=== PATIENT | male | born 1960 | race Caucasian/White ===

== ENCOUNTER 2020-06-05 20:16 | Inpatient (IN) | payer OTHER, SELFPAY ==
[2020-06-05 20:18] VITALS: BP 170/84; PULSE 103; RESP 35; TEMP 37.8; O2SAT 84; BMI 28.5
--- NOTE | 2020-06-05 20:20 | EKG12_ITS ---
Test Reason : DYSRYTHMIA Blood Pressure : / mmHG Vent. Rate : 102 BPM Atrial Rate : 102 BPM P-R Int : 150 ms QRS Dur : 098 ms QT Int : 364 ms P-R-T Axes : 022 002 011 degrees QTc Int : 474 ms Sinus tachycardia Otherwise normal ECG Confirmed by MAR BOWMAN, WALDO ([id number]), state editor RICHIE GAMEZ ([id number]) on 06/08/2020 10:25:33 AM Referred By: RAFA Confirmed By:WALDO MANUEL MD
--- NOTE | 2020-06-05 20:23 | ED.VISSUMM ---
- ER Visit Summary Date of Service: 06/05/20 Chief Complaint: Shortness of breath History of Present Illness: The patient is a 59 M presenting with shortness of breath, cough, fever. His symptoms started 11 days ago with cough. He states since yesterday he has been increasingly short of breath. This is worsened with exertion. Has had temperature up to 101 at home. He had a Covid test yesterday in outpatient facility. The results are not back yet. He states children around him have had cough and cold symptoms. He lost his sense of taste and smell one week ago. He denies diarrhea. Denies other complaints. Physical Examination: Vitals are stable. Temperature 100.1. Pulse ox 84% on room air. 97% on 4L. Alert no acute distress. HEENT exam is unremarkable. Neck is supple. No meningismus Lungs are rales at bases bilaterally. Heart is regular and tachycardic Abdomen is soft nontender nondistended. Extremities are unremarkable. Skin is warm and dry. No rash No focal neurologic deficit. Remainder of exam is unremarkable. Emergency Department Course and Treatment: Patient given IV fluids, Tylenol. EKG is sinus tachycardia rate of 102 with no acute ischemic changes. CBC shows white count 13.6, hemoglobin 10.4. Chest xray shows bilateral pulmonary infiltrates consistent with a pneumonic process of viral, atypical or typical nature. CBC shows white count 13.6, hemoglobin 10.4. Sodium 134, potassium 3.4, glucose 140. Troponin is negative. Lactic acid 2.1. Blood cultures were sent. Covid is positive. His pulse ox is 97% on 4 L. Discussed with the hospitalist. He will be given Rocephin, Zithromax, Decadron. He will be admitted. Disposition: Admission Impression: Bilateral pneumonia secondary to Covid, hypoxia This note was generated with [employer] dictation software. It may contain incorrect words, spelling, and punctuation that were not noted in review of the chart prior to signing ED Disposition - Plan for ED Patient: Referrals: Ananda Olvera DO [Primary Care Provider] -
[2020-06-05] MEDS: Acetaminophen 500 MG Tablet 1000 MG PO (20:33)
--- NOTE | 2020-06-05 20:45 | RAD_ITS ---
STUDY: X-RAY CHEST REASON FOR EXAM: Male, 59 years old. Cough, shortness of breath, fever for 2 days. TECHNIQUE: 1 view COMPARISON: None. FINDINGS: Bilateral lower lung zone infiltrates and infiltrate in the right midlung zone. There is no demonstrated pleural abnormality. Normal size heart. Normal mediastinum and yessi. Normal visualized pulmonary arteries. There is atherosclerotic calcification of the aortic arch with tortuosity. There are diffuse degenerative changes of the visualized thoracic spine. Normal visualized ribs, clavicles, and shoulders. There is no demonstrated abnormality of the visualized soft tissue structures of the upper abdomen. RAD/Chest 1 View (Portable) IMPRESSION: Bilateral pulmonary infiltrates consistent with a pneumonic process of viral, atypical or typical nature. Electronically Signed: Martina Solares MD at 21:10 EDT , Service support ,
[2020-06-05 20:58] LABS: Absolute Lymphocyte Count 0.61 X10^3/uL (0.83-4.51); Basophil# 0.01 X10^3/uL; Basophil% 0.1 % (0-1); Hematocrit 31.5 % (40-54); Hemoglobin 10.4 g/dL (13.0-16.5); Lymphocyte # 0.61 X10^3/ul (4.0); Lymphocyte % 4.5 % (19-41); Mean Corpuscular Hgb 29.9 pg (27.0-32.0); Mean Corpuscular Volume 90.5 fL (80-94); Monocyte# 0.96 X10^3/uL; NRBC Flagged by Analyzer 0 % (0-5); Neutrophil # 11.97 X10^3/uL (2.7-7.7); Neutrophil % 87.9 % (47-70); Platelet Count 316 K/mm3 (150-450); RBC Distribution Width SD 42.7 fl (35.1-43.9); Red Blood Count 3.48 M/mm3 (4.6-6.2); White Blood Count 13.6 K/mm3 (4.4-11.0)
[2020-06-05 21:17] VITALS: BP 162/90; PULSE 10; RESP 27; O2SAT 96
[2020-06-05 21:17] LABS: Anion Gap 9 (5-15); BUN 8 mg/dL (7-18); BUN/Creat Ratio 10.2 RATIO (10-20); Calcium,Total 8.6 mg/dL (8.5-10.1); Chloride 100 mmol/L (98-107); Creatinine, Serum 0.78 mg/dL (0.70-1.30); EST Glomerular Filtration Rate 108 mL/min (>60); Est Glom Filt Rate - Afr Amer 131 mL/min (>60); Estimated Creatinine Clearance 104.49 ml/min; Glucose 140 mg/dL (74-106); Potassium 3.4 mmol/L (3.5-5.1); Sodium Level 134 mmol/L (136-145)
[2020-06-05 21:19] VITALS: O2SAT 84
[2020-06-05 21:40] LABS: Lactic Acid 2.1 mmol/L (0.4-1.9)
[2020-06-05 22:00] VITALS: BP 139/87; PULSE 88; RESP 31; TEMP 37.3; O2SAT 97
[2020-06-05 23:00] VITALS: BP 136/84; PULSE 87; RESP 36; O2SAT 97
[2020-06-05 23:01] LABS: Probe Check PASS; Specimen Processing Control PASS
--- NOTE | 2020-06-05 23:21 | PCM.HP.STD ---
Problem List (1) SARS (severe acute respiratory syndrome) Status: Acute (2) COVID-19 Status: Acute History of Present Illness Date of Admission: 06/04/20 Chief Complaint: Shortness of breath The patient is a 59 year old [place] male previously healthy who presents emergency department with shortness of breath that started 2 days ago. His shortness of breath is with mild exertion. Patient had a Covid test a day before presentation. His results was not back prior to presentation. Patient reported that about 11 days ago his symptoms started with a cold. Associated with symptoms is a fever with highest temperature of 101 Fahrenheit. Further he has lost his sense of taste or smell. Paramedics brought patient to emergency department. His oxygen saturation on room air at home was 84%. At emergency department he required supplemental oxygen of 4.5 L which brought his oxygen saturation to about 96 to 97%. Reported several children that has come in contact with are coughing. Past Medical History Medical History: Medical History (Last Updated 06/06/20 @ 00:[address] Ben Ortez MD) Denies previous medical history Allergies No Known Allergies Allergy (Verified 06/05/20 20:22) Home Medications: Ambulatory Orders Medication Instructions Recorded NK 06/05/20 Surgical History: no surgical history, - Smoking Status: Never smoker - *Family History Maternal History Items: Cancer - Breast Paternal History Items: Cancer - Prostate, Heart Disease Review of Systems Constitutional: Reports: Chills, Fever, Malaise. Denies: Weight Change HEENT: Reports: Head Aches. Denies: Sinus Congestion, Sinus Drainage Cardiovascular: Denies: Chest Pain, Palpitations Respiratory: Reports: Cough, Sputum production - Occasional greenish sputum.. Denies: Shortness of breath at rest Gastrointestinal: Denies: Abdominal Pain, Nausea, Vomiting Genitourinary: Denies: Dysuria Musculoskeletal: Denies: Joint Pain, Joint Tenderness Skin: Denies: Rash, Wounds Neurological: Denies: Numbness, Tingling, Focal weakness Psychiatric: Denies: Anxiety, Depression, Homicidal Ideations, Suicidal Ideations Hematologic/ Lymphatic: Denies: Easy Bruising, Easy Bleeding VTE Information - Inpt Only VTE Present on Admission: No VTE Mechan Device Prophylaxis: None VTE Pharm Prophylaxis ordered?: Yes Patient Problems: Active and Suspected Problems (Last Updated 06/06/20 @ 00:[address] Ben Ortez MD) SARS (severe acute respiratory syndrome) (Acute) COVID-19 (Acute) - Physical Exam Vitals/I&O's: Vital Signs Temp Pulse Resp BP Pulse Ox 99.1 F 88 31 H 139/87 H 97 06/05/20 22:00 06/05/20 22:00 06/05/20 22:00 06/05/20 22:00 06/05/20 22:00 Oxygen Flow Rate (L/min) 4 Oxygen Delivery Method Nasal Cannula Weight: 87.5 kg Body Mass Index (BMI) 28.5 General: Alert, Oriented x3, Cooperative HEENT: Atraumatic, PERRLA, EOMI, Normocephalic Neck: Supple, No JVD, Negative Carotid Bruits Lungs: Rales, Tachypneic Cardiovascular: Regular rate, Regular Rhythm, Normal S1, Normal S2, No murmurs, Tachycardic Abdomen: Bowel Sounds Present, Soft, Non Tender Extremities: No edema, Capillary Refill Less than 3 Seconds Skin: No rashes, No breakdown Musculoskeletal: No Tenderness to Palpation of Joints or Extremities Neurological: Cranial nerves II-XII grossly intact Psych/Mental Status: Normal Affect, Appropriate Laboratory Results 06/05/20 20:25: WBC 13.6 H, RBC 3.48 L, Hgb 10.4 L, Hct 31.5 L, MCV 90.5, MCH 29.9, MCHC 33.0, RDW Std Deviation 42.7, RDW Coeff of Freddy 13.0, Plt Count 316, MPV 10.0, Immature Gran % (Auto) 0.500, Neut % (Auto) 87.9 H, Lymph % (Auto) 4.5 L, [place] % (Auto) 7.0, Eos % (Auto) 0.0, Baso % (Auto) 0.1, Absolute Neuts (auto) 12.0 H, Absolute Lymphs (auto) 0.61 L, Nucleated RBC % 0 06/05/20 20:25: Sodium 134 L, Potassium 3.4 L, Chloride 100, Carbon Dioxide 25.0, Anion Gap 9, BUN 8, Creatinine 0.78, Estim Creat Clear Calc 104.49, Est GFR (MDRD) Af Amer 131, Est GFR (MDRD) Non-Af 108, BUN/Creatinine Ratio 10.2, Glucose 140 H, Calcium 8.6, Troponin I < 0.015 06/05/20 20:25: Lactic Acid 2.1 H* 06/05/20 20:40: COVID-19 (TEJAL) Detected Current Medications Azithromycin 500 mg/ Dextrose 255 mls @ 250 mls/hr IV X1 ONE Stop: 06/06/20 00:14 Ceftriaxone Sodium (Rocephin) 1 gm in 50 mls @ 100 mls/hr IV X1 ONE Stop: 06/05/20 23:42 Assessment/Plan All Active Problems (Last Updated 06/06/20 @ 00:[address] Ben Ortez MD) SARS (severe acute respiratory syndrome) (Acute) COVID-19 (Acute) The patient is a 59 year old [place] male previously healthy who presents to the emergency department with shortness of breath; loss of taste and smell; fever; and chills who was found to have a positive COVID-19 test SARS COVID-19 infection. Review of emergency department labs showed a positive COVID-19 infection. Patient with neutrophilic leukocytosis and low lymphocytes. Discussed emergent department doctor to give IV Decadron; ceftriaxone and azithromycin. IV Decadron, ceftriaxone and azithromycin continued. We will get a procalcitonin. If procalcitonin is unremarkable consider discontinuation of antibiotics. Strep pneumonia and Legionella urine antigen ordered. Sputum Gram stain and culture ordered. Blood cultures x2 was obtained emergency department; follow. Lactic acid elevated at 2.1; trend[facility]. Oxygen supplementation as necessary. Tylenol as needed for fever. Trend CBC and BMP. Schedule Mucinex ordered. Check D-dimer. Enhanced droplet precautions ordered. Hypokalemia P.o. potassium supplementation ordered. Trend. DVT prophylaxis Subcutaneous Lovenox Covid protocol. Inpatient E&M: 91222 Init Hosp L3
[2020-06-06 00:01] VITALS: BP 142/79; PULSE 84; RESP 32; TEMP 37.2; O2SAT 97
[2020-06-06] MEDS: dexAMETHasone 4 MG/ML Vial 6 MG IV (00:05)
[2020-06-06] MEDS: Ceftriaxone 1 GM/50 ML BAG IV ×2 (00:07→23:41)
[2020-06-06 00:38] VITALS: BMI 26.8
[2020-06-06 00:44] VITALS: BP 139/72; PULSE 77; RESP 20; TEMP 37.6; O2SAT 98
[2020-06-06 00:51] LABS: Reflex Lactate? Y
[2020-06-06] MEDS: guaiFENesin 1,200 MG Tablet 1200 MG PO ×3 (01:32→21:15)
[2020-06-06 01:58] LABS: Lactic Acid 1.1 mmol/L (0.4-1.9)
[2020-06-06 02:06] LABS: Fibrinogen 857 mg/dl (203-444)
[2020-06-06 02:24] LABS: D-Dimer Quantitative (DVT/PE) 0.92 FEU/ug/m (0.27-0.49)
[2020-06-06 04:05] VITALS: BP 131/78; PULSE 76; RESP 20; TEMP 36.7; O2SAT 96
--- NOTE | 2020-06-06 04:51 | CT_ITS ---
STUDY: CTA CHEST REASON FOR EXAM: Male, 59 years old. SOB/FEVER/LOSS OF TASTE AND SMELL RADIATION DOSAGE (If Supplied By Facility): CTDIvol = ( 13.83 ) mGy, DLP = ( 555.16 ) mGycm TECHNIQUE: The examination was performed with the intravenous administration of IV 100mL Isovue-370. Post-processing of the angiographic images was performed, with multiplanar reformation, but without 3D reconstruction. Individualized dose optimization techniques were used for this CT. COMPARISON: Chest x-ray 06/05/2020. FINDINGS: Normal enhancement of the main pulmonary artery and right and left pulmonary arteries. Normal enhancement of the bilateral peripheral pulmonary arteries. There is no demonstrated pulmonary embolism. There is mild atherosclerotic calcification of the thoracic aorta. Otherwise normal thoracic aorta and visualized great vessels. There is no demonstrated aortic dissection. Normal heart and pericardium. There were multiple mildly enlarged mediastinal lymph nodes, with short axis diameters ranging up to 1.5 cm in the pretracheal and right paratracheal region, and 1.8 cm in the subcarinal region.. The visualized hilar lymph nodes are normal in size and morphology. Normal visualized trachea and bronchi. The lungs are well expanded. There are groundglass opacities which are predominately seen in the peripheries of the mid and upper lung gant. There are denser infiltrates as well as areas of groundglass opacity in the lower lung gant bilaterally. Normal pleura. Normal chest wall structures. There are bridging osteophytes at multiple contiguous levels of the thoracic spine, consistent with DISH (diffuse idiopathic skeletal hyperostosis). The gallbladder is contracted, which may be normal or abnormal, depending on when the patient last ate a fatty meal. There is a small hiatal hernia. CT/CTA Chest W/WO Contrast IMPRESSION: Normal CTA chest examination, without a demonstrated pulmonary embolism, aortic aneurysm, or aortic dissection. Commonly reported imaging features of (COVID-19) pneumonia are present. Other processes such as influenza pneumonia and organizing pneumonia (as can be seen with drug toxicity and connective tissue disease), can cause a similar imaging pattern. Mild atherosclerosis. Mild mediastinal lymphadenopathy. Electronically Signed: Ryan Horn MD at 7:10 EDT , Service support ,
[2020-06-06 05:54] LABS: Procalcitonin 0.14 ng/mL (0.00-0.09)
--- NOTE | 2020-06-06 05:57 | PCM.CONS.PUL ---
Reason for Consult Date of Consultation: 06/06/20 Reason for Consultation: Covid pneumonia History of Present Illness: The patient is a 59-year-old male, with a history as outlined below, who presented to the emergency department on June 05 with complaints of shortness of breath, cough and fever. The patient's symptoms initially began over 1 week ago. The patient did report a loss in both taste and smell as well. He denied any known sick contact exposure. On presentation to the emergency department, the patient was noted to be febrile, mildly tachycardic and tachypneic. Laboratory evaluation revealed an elevated white blood cell count to 13,000. D-dimer was only elevated to 0.92. Chemistry profile was notable for a potassium of 3.4 and lactate of 2.1. Troponin was negative. Procalcitonin was not significantly elevated. Coronavirus PCR was positive. Plain film chest x-ray revealed bilateral pulmonary infiltrates. The patient has been managed to date with empiric antimicrobials, DVT prophylaxis dosing Lovenox and Decadron. Past Medical History Medical History: Medical History (Last Updated 06/06/20 @ 00:[address] Ben Ortez MD) Denies previous medical history Allergies No Known Allergies Allergy (Verified 06/05/20 20:22) Home Medications: Ambulatory Orders Medication Instructions Recorded NK 06/05/20 Surgical History: no surgical history, - Smoking Status: Former smoker Tobacco Use: Non-smoker - *Family History Maternal History Items: Cancer - Breast Paternal History Items: Cancer - Prostate, Heart Disease Review of Systems Constitutional: Reports: Chills, Fever, Fatigue Eyes: Reports: Double vision. Denies: Blurred vision HEENT: Denies: Head Aches, Sinus Congestion, Sinus Drainage Cardiovascular: Denies: Chest Pain, Palpitations Respiratory: Reports: Cough, Shortness of Breath Gastrointestinal: Denies: Abdominal Pain, Nausea, Vomiting Genitourinary: Denies: Dysuria Musculoskeletal: Denies: Joint Pain, Joint Tenderness Skin: Denies: Rash, Wounds Neurological: Denies: Numbness, Tingling, Focal weakness Hematologic/ Lymphatic: Denies: Easy Bruising, Easy Bleeding Patient Problems: Active and Suspected Problems (Last Updated 06/06/20 @ 00:[address] Ben Ortez MD) SARS (severe acute respiratory syndrome) (Acute) COVID-19 (Acute) Objective: The patient's most recent lab work, culture data and imaging studies have all been personally reviewed. Coronavirus PCR was positive on June 05. - Physical Exam Vitals/I&O's: Vital Signs Temp Pulse Resp BP Pulse Ox 98.1 F 76 20 H 131/78 H 96 06/06/20 04:05 06/06/20 04:05 06/06/20 04:05 06/06/20 04:05 06/06/20 04:05 Oxygen Flow Rate (L/min) 4 Oxygen Delivery Method Room Air Weight: 192 lb 7.417 oz Body Mass Index (BMI) 26.8 Intake and Output for Last 24 Hours 06/04/20 06/05/20 06/06/20 23:59 23:59 23:59 Intake Total 305 / 305 Balance 305 / 305 General: Alert, Oriented x3, Cooperative, No apparent distress HEENT: Atraumatic, PERRLA, Normocephalic Oral: No Gingival or Mucosal Lesions/ Ulcerations Neck: Supple, No Nodes, Trachea Midline Lungs: No rhonchi, No wheeze, No rales, Diminished Cardiovascular: Regular rate, Regular Rhythm Abdomen: Bowel Sounds Present, Soft, Non Tender Extremities: No clubbing, No cyanosis, No edema Skin: No breakdown Musculoskeletal: No Tenderness to Palpation of Joints or Extremities Lymphatic: No Cervical, Supraclavicular, or Inguinal Adenopathy Neurological: Cranial nerves II-XII grossly intact, Neuro grossly intact Psych/Mental Status: Normal Affect, Appropriate Labs (Last 48 Hours) 06/05/20 06/05/20 06/05/20 20:25 20:25 20:25 WBC 13.6 H RBC 3.48 L Hgb 10.4 L Hct 31.5 L MCV 90.5 MCH 29.9 MCHC 33.0 RDW Std Deviation 42.7 RDW Coeff of Freddy 13.0 Plt Count 316 MPV 10.0 Immature Gran % (Auto) 0.500 Neut % (Auto) 87.9 H Lymph % (Auto) 4.5 L [place] % (Auto) 7.0 Eos % (Auto) 0.0 Baso % (Auto) 0.1 Absolute Neuts (auto) 12.0 H Absolute Lymphs (auto) 0.61 L Nucleated RBC % 0 Fibrinogen D-Dimer Quant (PE/DVT) Sodium 134 L Potassium 3.4 L Chloride 100 Carbon Dioxide 25.0 Anion Gap 9 BUN 8 Creatinine 0.78 Estim Creat Clear Calc 104.49 Est GFR (MDRD) Af Amer 131 Est GFR (MDRD) Non-Af 108 BUN/Creatinine Ratio 10.2 Glucose 140 H Lactic Acid 2.1 H* Calcium 8.6 Troponin I < 0.015 Procalcitonin COVID-19 (TEJAL) 06/05/20 06/06/20 06/06/20 20:40 01:23 01:23 WBC RBC Hgb Hct MCV MCH MCHC RDW Std Deviation RDW Coeff of Freddy Plt Count MPV Immature Gran % (Auto) Neut % (Auto) Lymph % (Auto) [place] % (Auto) Eos % (Auto) Baso % (Auto) Absolute Neuts (auto) Absolute Lymphs (auto) Nucleated RBC % Fibrinogen 857 H D-Dimer Quant (PE/DVT) 0.92 H* Sodium Potassium Chloride Carbon Dioxide Anion Gap BUN Creatinine Estim Creat Clear Calc Est GFR (MDRD) Af Amer Est GFR (MDRD) Non-Af BUN/Creatinine Ratio Glucose Lactic Acid Calcium Troponin I Procalcitonin 0.14 H COVID-19 (TEJAL) Detected 06/06/20 06/06/20 01:23 01:23 WBC Pending RBC Pending Hgb Pending Hct Pending MCV Pending MCH Pending MCHC Pending RDW Std Deviation Pending RDW Coeff of Freddy Pending Plt Count Pending MPV Immature Gran % (Auto) Neut % (Auto) Pending Lymph % (Auto) [place] % (Auto) Eos % (Auto) Baso % (Auto) Absolute Neuts (auto) Pending Absolute Lymphs (auto) Nucleated RBC % Fibrinogen D-Dimer Quant (PE/DVT) Sodium Potassium Chloride Carbon Dioxide Anion Gap BUN Creatinine Estim Creat Clear Calc Est GFR (MDRD) Af Amer Est GFR (MDRD) Non-Af BUN/Creatinine Ratio Glucose Lactic Acid 1.1 Calcium Troponin I Procalcitonin COVID-19 (TEJAL) Microbiology 06/06/20 01:30 Urine, Random Legionella Antigen - Final 06/06/20 01:30 Urine, Random Streptococcus pneumoniae Antigen (M - Final Clinical Impression(s) from Imaging Studies Chest X-Ray 06/05/20 20:45 IMPRESSION: Bilateral pulmonary infiltrates consistent with a pneumonic process of viral, atypical or typical nature. Electronically Signed: Martina Solares MD at 21:10 EDT , Service support , Current Medications Acetaminophen (Acetaminophen 325 Mg Tablet) 650 mg PO Q6H PRN PRN PRN Reason: Pain Score 1-10/Temp > 100.7 F Dexamethasone Sodium Phosphate (Dexamethasone 10 Mg/Ml Vial) 6 mg IV DAILY VERONICA Enoxaparin Sodium (Enoxaparin 30 Mg/0.3 Ml Syringe) 30 mg SC BID VERONICA Guaifenesin (Guaifenesin 1,200 Mg Tablet) 1,200 mg PO BID VERONICA Last Admin: 06/06/20 01:32 Dose: 1,200 mg Documented by: Ceftriaxone Sodium (Rocephin) 1 gm in 50 mls @ 100 mls/hr IV Q24H VERONICA Azithromycin 500 mg/ Dextrose 255 mls @ 250 mls/hr IV Q24H VERONICA Sodium Chloride () 250 mls @ 15 mls/hr IV .[id number] PRN PRN Reason: Saline Flush Sodium Chloride () 250 mls @ 15 mls/hr IV .[id number] PRN PRN Reason: Additional IVPB Infusion Influenza Virus Vaccine Quadrival (Influenza Vaccine (6mos+)/Pf 0.5 Ml Syringe) 0.5 ml IM .ONCE ONE Stop: 06/06/20 10:01 Ondansetron HCl (Ondansetron 4 Mg/2 Ml Vial) 4 mg IV Q8H PRN PRN PRN Reason: NAUSEA/VOMITING Sodium Chloride (0.9% Saline Lock 10 Ml Syringe) 10 - 40 ml IV UD PRN PRN Reason: SALINE FLUSH Assessment/Plan All Active Problems (Last Updated 06/06/20 @ 00:[address] Ben Ortez MD) SARS (severe acute respiratory syndrome) (Acute) COVID-19 (Acute) RECOMMENDATIONS: 1. Wean supplemental oxygen to maintain saturations at or above 90%. 2. Continue Decadron 6 mg daily x10 days. 3. Continue DVT prophylaxis dosing Lovenox. 4. Continue empiric antimicrobials. 5. Encourage incentive spirometer use and mobilize patient as tolerated. IMPRESSIONS: 1. Acute hypoxemic respiratory insufficiency secondary to COVID-19 pneumonia The patient presented with symptoms of concern for greater than 1 weeks duration. At the current time, the patient is stable from a respiratory perspective on minimal supplemental oxygen and is receiving Decadron 6 mg daily. Given the patient's clinical stability and duration of symptoms, I would hold off on administering remdesivir or convalescent plasma. Given that the patient's D-dimer was not significantly elevated and there was no evidence of pulmonary embolism on CTA, DVT prophylaxis Lovenox is appropriate. Continue to wean supplemental oxygen to maintain saturations at or above 90%. Encourage incentive spirometer use and mobilize patient as tolerated. This note was generated with [employer] dictation software. It may contain incorrect words, spelling, and punctuation that were not noted in checking the note before signing. Inpatient E&M: 82697 Init Hosp L3
[2020-06-06 07:03] LABS: Absolute Neutrophil Count 10.2 X10^3/uL (2.0-7.7); Basophil# 0.01 X10^3/uL; Basophil% 0.1 % (0-1); Eosinophil# 0.24 X10^3/uL; Eosinophils% 2.1 % (0-5); Hematocrit 33.7 % (40-54); Hemoglobin 10.8 g/dL (13.0-16.5); Lymphocyte % 6.1 % (19-41); Mean Corpuscular Hgb 29.2 pg (27.0-32.0); Mean Corpuscular Volume 91.1 fL (80-94); Mean Platelet Vol. 10.2 fl (6.2-12.0); Monocyte# 0.33 X10^3/uL; Monocyte% 2.9 % (0-10); NRBC Flagged by Analyzer 0 % (0-5); Neutrophil % 88.5 % (47-70); Platelet Count 279 K/mm3 (150-450); RBC Distribution Width CV 13.2 % (11.6-14.6); RBC Distribution Width SD 43.8 fl (35.1-43.9); White Blood Count 11.5 K/mm3 (4.4-11.0)
--- NOTE | 2020-06-06 07:38 | PN_ITS ---
Patient Problems: Active and Suspected Problems (Last Updated 06/06/20 @ 00:[address] Ben Ortez MD) SARS (severe acute respiratory syndrome) (Acute) COVID-19 (Acute) Subjective: Patient seen and examined. He was admitted with a complaint of shortness of breath and found to be Covid positive. This is a loss of taste and smell. He was saturating at 84% at home and required 4.5 L on admission in the ED. Currently on 4 L. WBC has trended down to 11.5. He has otherwise remained hemodynamically stable. Vitals/I&O's: Vital Signs Temp Pulse Resp BP Pulse Ox 98.1 F 76 20 H 131/78 H 96 06/06/20 04:05 06/06/20 04:05 06/06/20 04:05 06/06/20 04:05 06/06/20 04:05 Oxygen Flow Rate (L/min) 4 Oxygen Delivery Method Room Air Weight: 192 lb 7.417 oz Body Mass Index (BMI) 26.8 Intake and Output for Last 24 Hours 06/04/20 06/05/20 06/06/20 23:59 23:59 23:59 Intake Total 545 / 545 Output Total 400 / 400 Balance 145 / 145 General: Alert, Oriented x3, Cooperative, No apparent distress HEENT: Atraumatic, PERRLA, EOMI, Normocephalic Oral: Dry Mucosa Neck: Supple, No JVD, Negative Carotid Bruits Lungs: - - decreased breath sounds in all lung gant, with a few rales. on 4L of oxygen by nasal canula Cardiovascular: Regular rate, Regular Rhythm, Normal S1, Normal S2, No murmurs Abdomen: Bowel Sounds Present, Soft, Non Tender Extremities: No clubbing, No cyanosis, No edema, Capillary Refill Less than 3 Seconds Skin: No rashes, No breakdown Musculoskeletal: No Tenderness to Palpation of Joints or Extremities Lymphatic: No Cervical, Supraclavicular, or Inguinal Adenopathy Neurological: Cranial nerves II-XII grossly intact, Neuro grossly intact, Motor Exam 5/5 strength throughout Psych/Mental Status: Normal Affect, Appropriate, Alert and oriented to time, place, person, mood and affect Microbiology Past 72 Hours 06/06/20 01:30 Urine, Random Legionella Antigen - Final 06/06/20 01:30 Urine, Random Streptococcus pneumoniae Antigen (M - Final Laboratory Results 06/05/20 20:25: WBC 13.6 H, RBC 3.48 L, Hgb 10.4 L, Hct 31.5 L, MCV 90.5, MCH 29.9, MCHC 33.0, RDW Std Deviation 42.7, RDW Coeff of Freddy 13.0, Plt Count 316, MPV 10.0, Immature Gran % (Auto) 0.500, Neut % (Auto) 87.9 H, Lymph % (Auto) 4.5 L, [place] % (Auto) 7.0, Eos % (Auto) 0.0, Baso % (Auto) 0.1, Absolute Neuts (auto) 12.0 H, Absolute Lymphs (auto) 0.61 L, Nucleated RBC % 0 06/05/20 20:25: Sodium 134 L, Potassium 3.4 L, Chloride 100, Carbon Dioxide 25.0, Anion Gap 9, BUN 8, Creatinine 0.78, Estim Creat Clear Calc 104.49, Est GFR (MDRD) Af Amer 131, Est GFR (MDRD) Non-Af 108, BUN/Creatinine Ratio 10.2, Glucose 140 H, Calcium 8.6, Troponin I < 0.015 06/05/20 20:25: Lactic Acid 2.1 H* 06/05/20 20:40: COVID-19 (TEJAL) Detected 06/06/20 01:23: Fibrinogen 857 H, D-Dimer Quant (PE/DVT) 0.92 H* 06/06/20 01:23: Procalcitonin 0.14 H 06/06/20 01:23: Lactic Acid 1.1 06/06/20 05:35: WBC 11.5 H, RBC 3.70 L, Hgb 10.8 L, Hct 33.7 L, MCV 91.1, MCH 29.2, MCHC 32.0, RDW Std Deviation 43.8, RDW Coeff of Freddy 13.2, Plt Count 279, MPV 10.2, Immature Gran % (Auto) 0.300, Neut % (Auto) 88.5 H, Lymph % (Auto) 6.1 L, [place] % (Auto) 2.9, Eos % (Auto) 2.1, Baso % (Auto) 0.1, Absolute Neuts (auto) 10.2 H, Absolute Lymphs (auto) 0.70 L, Nucleated RBC % 0 Diagnostic Data Chest X-Ray 06/05/20 20:45 IMPRESSION: Bilateral pulmonary infiltrates consistent with a pneumonic process of viral, atypical or typical nature. Electronically Signed: Martina Solares MD at 21:10 EDT , Service support , Chest CTA 06/06/20 04:51 IMPRESSION: Normal CTA chest examination, without a demonstrated pulmonary embolism, aortic aneurysm, or aortic dissection. Commonly reported imaging features of (COVID-19) pneumonia are present. Other processes such as influenza pneumonia and organizing pneumonia (as can be seen with drug toxicity and connective tissue disease), can cause a similar imaging pattern. Mild atherosclerosis. Mild mediastinal lymphadenopathy. Electronically Signed: Ryan Horn MD at 7:10 EDT , Service support , Current Medications Acetaminophen (Acetaminophen 325 Mg Tablet) 650 mg PO Q6H PRN PRN PRN Reason: Pain Score 1-10/Temp > 100.7 F Dexamethasone Sodium Phosphate (Dexamethasone 10 Mg/Ml Vial) 6 mg IV DAILY [facility] Enoxaparin Sodium (Enoxaparin 30 Mg/0.3 Ml Syringe) 30 mg SC BID [facility] Guaifenesin (Guaifenesin 1,200 Mg Tablet) 1,200 mg PO BID [facility] Last Admin: 06/06/20 01:32 Dose: 1,200 mg Documented by: Ceftriaxone Sodium (Rocephin) 1 gm in 50 mls @ 100 mls/hr IV Q24H [facility]ON[facility] Azithromycin 500 mg/ Dextrose 255 mls @ 250 mls/hr IV Q24H [facility] Sodium Chloride () 250 mls @ 15 mls/hr IV .[id number] PRN PRN Reason: Saline Flush Sodium Chloride () 250 mls @ 15 mls/hr IV .[id number] PRN PRN Reason: Additional IVPB Infusion Influenza Virus Vaccine Quadrival (Influenza Vaccine (6mos+)/Pf 0.5 Ml Syringe) 0.5 ml IM .ONCE ONE Stop: 06/06/20 10:01 Ondansetron HCl (Ondansetron 4 Mg/2 Ml Vial) 4 mg IV Q8H PRN PRN PRN Reason: NAUSEA/VOMITING Sodium Chloride (0.9% Saline Lock 10 Ml Syringe) 10 - 40 ml IV UD PRN PRN Reason: SALINE FLUSH STROKE Vital Signs/Narrative: Vital Signs Temp Pulse Resp BP Pulse Ox 06/06/20 04:05 98.1 F 76 20 H 131/78 H 96 Medical Necessity - Tobacco Use Smoking Status: Former smoker Tobacco Use: Non-smoker Assessment/Plan All Active Problems (Last Updated 06/06/20 @ 00:[address] Ben Ortez MD) SARS (severe acute respiratory syndrome) (Acute) COVID-19 (Acute) # acute hypoxic respiratory failure due to COVID 19 infection * Now on [address] of the chest was negative for PE. * On IV Decadron. Also on IV ceftriaxone and azithromycin. * Titrate oxygen to maintain saturation above 90%. Blood cultures and sputum Gram stain as well as sputum culture ordered. * Breathing treatments with bronchodilators. * Titrate oxygen to maintain saturation above 90%. * #COVID 19 pneumonia: as above #Lactic acidosis: Lactic acid was 2.1 on admission and is resolved. Is now 1.1. #DVT prophylaxis: Lovenox 30mg twice daily. Inpatient E&M: [id number] [facility] L3
[2020-06-06 10:05] VITALS: BP 141/77; PULSE 85; RESP 18; TEMP 37.2; O2SAT 97
[2020-06-06] MEDS: Enoxaparin 30 MG/0.3 ML Syringe SC ×2 (10:13→21:15)
[2020-06-06] MEDS: dexAMETHasone 10 MG/ML Vial 6 MG IV (10:15)
[2020-06-06 16:00] VITALS: BP 147/79; PULSE 82; RESP 18; TEMP 36.7; O2SAT 93
[2020-06-06 21:18] VITALS: BP 133/81; PULSE 84; RESP 18; TEMP 36.4; O2SAT 95
[2020-06-07] VITALS (7 sets, daily range): BP systolic 125–129; BP diastolic 72–78; PULSE 61–73; RESP 16–18; TEMP 36.6–36.8; O2SAT 93–97
[2020-06-07 05:34] LABS: Absolute Lymphocyte Count 1.52 X10^3/uL (0.83-4.51); Absolute Neutrophil Count 15.5 X10^3/uL (2.0-7.7); Basophil# 0.03 X10^3/uL; Basophil% 0.2 % (0-1); Hematocrit 31.7 % (40-54); Hemoglobin 10.1 g/dL (13.0-16.5); Lymphocyte # 1.52 X10^3/ul (4.0); Lymphocyte % 8.3 % (19-41); Mean Corp Hgb Conc 31.9 g/dL (32-36); Mean Corpuscular Hgb 29.6 pg (27.0-32.0); Mean Platelet Vol. 10.1 fl (6.2-12.0); Monocyte# 1.07 X10^3/uL; Monocyte% 5.9 % (0-10); NRBC Flagged by Analyzer 0 % (0-5); Neutrophil # 15.52 X10^3/uL (2.7-7.7); Neutrophil % 84.9 % (47-70); Platelet Count 359 K/mm3 (150-450); RBC Distribution Width CV 13.5 % (11.6-14.6); RBC Distribution Width SD 46.2 fl (35.1-43.9); Red Blood Count 3.41 M/mm3 (4.6-6.2); White Blood Count 18.3 K/mm3 (4.4-11.0)
[2020-06-07 06:02] LABS: Anion Gap 8 (5-15); BUN 15 mg/dL (7-18); BUN/Creat Ratio 22.4 RATIO (10-20); Calcium,Total 9.1 mg/dL (8.5-10.1); Chloride 105 mmol/L (98-107); Creatinine, Serum 0.67 mg/dL (0.70-1.30); EST Glomerular Filtration Rate 129 mL/min (>60); Est Glom Filt Rate - Afr Amer 157 mL/min (>60); Estimated Creatinine Clearance 129.56 ml/min; Glucose 111 mg/dL (74-106); Potassium 4.2 mmol/L (3.5-5.1); Sodium Level 136 mmol/L (136-145)
--- NOTE | 2020-06-07 07:50 | PCM.PN.HOSP ---
Patient Problems: Active and Suspected Problems (Last Updated 06/06/20 @ 00:[address] Ben Ortez MD) SARS (severe acute respiratory syndrome) (Acute) COVID-19 (Acute) Reason for Visit: Follow-up on hypoxia/acute COVID-19 pneumonia Subjective: Patient was seen and examined. He feels much improved. Denied any fever or chills. No progressive/worsening shortness of breath. No nausea or diarrhea Objective: Physical exam: General: Alert, Oriented x3, Cooperative, No apparent distress, on 4 L of oxygen HEENT: Atraumatic, PERRLA, EOMI, Normocephalic Oral: Dry Mucosa Neck: Supple, No JVD, Negative Carotid Bruits Lungs: - -Diminished breath sounds Cardiovascular: Regular rate, Regular Rhythm, Normal S1, Normal S2, No murmurs Abdomen: Bowel Sounds Present, Soft, Non Tender Extremities: No clubbing, No cyanosis, No edema, Capillary Refill Less than 3 Seconds Skin: No rashes, No breakdown Musculoskeletal: No Tenderness to Palpation of Joints or Extremities Lymphatic: No Cervical, Supraclavicular, or Inguinal Adenopathy Neurological: Cranial nerves II-XII grossly intact, Neuro grossly intact, Motor Exam 5/5 strength throughout Psych/Mental Status: Normal Affect, Appropriate, Alert and oriented to time, place, person, mood and affect Vitals/I&O's: Vital Signs Temp Pulse Resp BP Pulse Ox 98.0 F 73 18 128/78 H 96 06/07/20 02:45 06/07/20 02:45 06/07/20 02:45 06/07/20 02:45 06/07/20 02:45 Oxygen Flow Rate (L/min) 4 Oxygen Delivery Method Nasal Cannula Weight: 87.3 kg Body Mass Index (BMI) 26.8 Intake and Output for Last 24 Hours 06/05/20 06/06/20 06/07/20 23:59 23:59 23:59 Intake Total 1890 / 1890 50 / 50 Output Total 1850 / 1850 375 / 375 Balance 40 / 40 -325 / -325 Microbiology Past 72 Hours 06/06/20 01:30 Sputum, Expectorated/Coughed Gram Stain - Final 06/06/20 01:30 Urine, Random Legionella Antigen - Final 06/06/20 01:30 Urine, Random Streptococcus pneumoniae Antigen (M - Final Laboratory Results 06/07/20 05:10: WBC 18.3 H, RBC 3.41 L, Hgb 10.1 L, Hct 31.7 L, MCV 93.0, MCH 29.6, MCHC 31.9 L, RDW Std Deviation 46.2 H, RDW Coeff of Freddy 13.5, Plt Count 359, MPV 10.1, Immature Gran % (Auto) 0.700, Neut % (Auto) 84.9 H, Lymph % (Auto) 8.3 L, [place] % (Auto) 5.9, Eos % (Auto) 0.0, Baso % (Auto) 0.2, Absolute Neuts (auto) 15.5 H, Absolute Lymphs (auto) 1.52, Nucleated RBC % 0 06/07/20 05:10: Sodium 136, Potassium 4.2, Chloride 105, Carbon Dioxide 23.0, Anion Gap 8, BUN 15, Creatinine 0.67 L, Estim Creat Clear Calc 129.56, Est GFR (MDRD) Af Amer 157, Est GFR (MDRD) Non-Af 129, BUN/Creatinine Ratio 22.4 H, Glucose 111 H, Calcium 9.1 Current Medications Acetaminophen (Acetaminophen 325 Mg Tablet) 650 mg PO Q6H PRN PRN PRN Reason: Pain Score 1-10/Temp > 100.7 F Dexamethasone Sodium Phosphate (Dexamethasone 10 Mg/Ml Vial) 6 mg IV DAILY [facility] Last Admin: 06/06/20 10:15 Dose: 6 mg Documented by: Enoxaparin Sodium (Enoxaparin 30 Mg/0.3 Ml Syringe) 30 mg SC BID [facility] Last Admin: 06/06/20 21:15 Dose: 30 mg Documented by: Guaifenesin (Guaifenesin 1,200 Mg Tablet) 1,200 mg PO BID [facility] Last Admin: 06/06/20 21:15 Dose: 1,200 mg Documented by: Ceftriaxone Sodium (Rocephin) 1 gm in 50 mls @ 100 mls/hr IV Q24H [facility] Last Infusion: 06/07/20 00:11 Dose: Infused Documented by: Azithromycin 500 mg/ Dextrose 255 mls @ 250 mls/hr IV Q24H [facility] Last Infusion: 06/06/20 22:15 Dose: Infused Documented by: Sodium Chloride () 250 mls @ 15 mls/hr IV .[id number] PRN PRN Reason: Saline Flush Sodium Chloride () 250 mls @ 15 mls/hr IV .[id number] PRN PRN Reason: Additional IVPB Infusion Ondansetron HCl (Ondansetron 4 Mg/2 Ml Vial) 4 mg IV Q8H PRN PRN PRN Reason: NAUSEA/VOMITING Sodium Chloride (0.9% Saline Lock 10 Ml Syringe) 10 - 40 ml IV UD PRN PRN Reason: SALINE FLUSH Medical Necessity - Tobacco Use Smoking Status: Former smoker Tobacco Use: Non-smoker Assessment/Plan All Active Problems (Last Updated 06/06/20 @ 00:[address] Ben Ortez MD) SARS (severe acute respiratory syndrome) (Acute) COVID-19 (Acute) 1. Acute hypoxic respiratory insufficiency secondary to acute COVID-19 pneumonia Patient's admitting SPO2 was 84% but improved up to 4 L of oxygen Continue with breathing treatments, IV steroids, encourage use of incentive spirometer. Wean off oxygen for SPO2 more than 94% 2. Acute COVID-19 pneumonia, slowly improving clinically Continue on IV dexamethasone ID consulted 3. Lactic acidosis likely secondary to #1, resolved 4. DVT prophylaxis with Lovenox twice daily Inpatient E&M: [id number] [facility]osp L3
[2020-06-07] MEDS: Enoxaparin 30 MG/0.3 ML Syringe SC ×2 (09:10→22:52)
[2020-06-07] MEDS: dexAMETHasone 10 MG/ML Vial 6 MG IV (09:10)
[2020-06-07] MEDS: guaiFENesin 1,200 MG Tablet 1200 MG PO ×2 (09:10→22:53)
[2020-06-07] MEDS: 0.9% Saline Lock 10 ML Syringe IV ×2 (09:11→22:53)
--- NOTE | 2020-06-07 11:35 | CASEMGMT ---
RN CM called patient for initial transition planning/care coordination assessment. RN CM introduced self and role at [facility]. Patient is alert and oriented. Patient willing to participate in assessment and is able to answer all questions appropriately. Care providers, pharmacy, and demographics verified. Patient wishes to discharge home, denies need for home health at this time. Patient states he has no further needs or concerns at this time. CM to follow for discharge planning needs that may arise. PCP: Wade Specialists: none Preferred Pharmacy: [facility] retail Insurance: [facility] Prescription Benefit: none Living Will/HPOA: none LNOK: and son Living Arrangements: Patient lives with son and in a 2 story home with bed and bath on the first floor. Patient is able to self isolate at home. Patient is independent at home. Patient does not have electricity but has access to a generator. Transportation: driving service DME/HHC: Patient denies previous HHC or DME. Patient has no preference for DME. Will monitor need for home oxygen at discharge. Disposition Plan: Patient to discharge home with family support and follow-up plans in place. Lucila GO, RN, CM
--- NOTE | 2020-06-07 13:54 | PCM.PN.PUL ---
Patient Problems: Active and Suspected Problems (Last Updated 06/06/20 @ 00:[address] Ben Ortez MD) SARS (severe acute respiratory syndrome) (Acute) COVID-19 (Acute) Subjective: Patient did well overnight. Patient is still reporting significant dyspnea on exertion, but feels more comfortable at rest. No diarrhea or bleeding has been reported. Patient subjectively feels that he is improved compared to yesterday. Patient is still requiring 4 L nasal cannula to maintain saturations. - Physical Exam Vitals/I&O's: Vital Signs Temp Pulse Resp BP Pulse Ox 36.6 C 71 18 129/72 H 96 06/07/20 08:45 06/07/20 08:45 06/07/20 08:45 06/07/20 08:45 06/07/20 09:00 Oxygen Flow Rate (L/min) 4 Oxygen Delivery Method Nasal Cannula Weight: 87.3 kg Body Mass Index (BMI) 26.8 Intake and Output for Last 24 Hours 06/05/20 06/06/20 06/07/20 23:59 23:59 23:59 Intake Total 1890 / 1890 50 / 50 Output Total 1850 / 1850 375 / 375 Balance 40 / 40 -325 / -325 General: Alert, Oriented x3, Cooperative, No apparent distress - On supplemental oxygen, - - Appears stated age. Speaking in full sentences. HEENT: Atraumatic, PERRLA, EOMI, Normocephalic, - - No scleral icterus or injection noted Oral: Moist Mucosa, No Gingival or Mucosal Lesions/ Ulcerations Neck: Supple, No JVD, No Nodes, Trachea Midline Lungs: No rhonchi, No wheeze, No rales, Diminished, - - Symmetric expansion. No dullness to percussion. Cardiovascular: Regular rate, Regular Rhythm, Normal S1, Normal S2, No murmurs, No rub noted, No Gallop Abdomen: Bowel Sounds Present, Soft, Non Tender, Non-Distended Extremities: No clubbing, No cyanosis, No edema, Capillary Refill Less than 3 Seconds Skin: No rashes, No breakdown Musculoskeletal: No Tenderness to Palpation of Joints or Extremities Lymphatic: No Cervical, Supraclavicular, or Inguinal Adenopathy Neurological: Cranial nerves II-XII grossly intact, Neuro grossly intact, Motor Exam 5/5 strength throughout Psych/Mental Status: Alert and oriented to time, place, person, mood and affect Microbiology Past 72 Hours 06/06/20 01:30 Sputum, Expectorated/Coughed Gram Stain - Final 06/06/20 01:30 Sputum, Expectorated/Coughed Respiratory Culture - Preliminary Appears to be normal respiratory janice. Further studies to follow. 06/06/20 01:30 Urine, Random Legionella Antigen - Final 06/06/20 01:30 Urine, Random Streptococcus pneumoniae Antigen (M - Final Laboratory Results 06/07/20 05:10: WBC 18.3 H, RBC 3.41 L, Hgb 10.1 L, Hct 31.7 L, MCV 93.0, MCH 29.6, MCHC 31.9 L, RDW Std Deviation 46.2 H, RDW Coeff of Freddy 13.5, Plt Count 359, MPV 10.1, Immature Gran % (Auto) 0.700, Neut % (Auto) 84.9 H, Lymph % (Auto) 8.3 L, [place] % (Auto) 5.9, Eos % (Auto) 0.0, Baso % (Auto) 0.2, Absolute Neuts (auto) 15.5 H, Absolute Lymphs (auto) 1.52, Nucleated RBC % 0 06/07/20 05:10: Sodium 136, Potassium 4.2, Chloride 105, Carbon Dioxide 23.0, Anion Gap 8, BUN 15, Creatinine 0.67 L, Estim Creat Clear Calc 129.56, Est GFR (MDRD) Af Amer 157, Est GFR (MDRD) Non-Af 129, BUN/Creatinine Ratio 22.4 H, Glucose 111 H, Calcium 9.1 Current Medications Acetaminophen (Acetaminophen 325 Mg Tablet) 650 mg PO Q6H PRN PRN PRN Reason: Pain Score 1-10/Temp > 100.7 F Dexamethasone Sodium Phosphate (Dexamethasone 10 Mg/Ml Vial) 6 mg IV DAILY [facility] Last Admin: 06/07/20 09:10 Dose: 6 mg Documented by: Enoxaparin Sodium (Enoxaparin 30 Mg/0.3 Ml Syringe) 30 mg SC BID [facility] Last Admin: 06/07/20 09:10 Dose: 30 mg Documented by: Guaifenesin (Guaifenesin 1,200 Mg Tablet) 1,200 mg PO BID [facility] Last Admin: 06/07/20 09:10 Dose: 1,200 mg Documented by: Ceftriaxone Sodium (Rocephin) 1 gm in 50 mls @ 100 mls/hr IV Q24H [facility] Last Infusion: 06/07/20 00:11 Dose: Infused Documented by: Azithromycin 500 mg/ Dextrose 255 mls @ 250 mls/hr IV Q24H [facility] Last Infusion: 06/06/20 22:15 Dose: Infused Documented by: Sodium Chloride () 250 mls @ 15 mls/hr IV .[id number] PRN PRN Reason: Saline Flush Sodium Chloride () 250 mls @ 15 mls/hr IV .[id number] PRN PRN Reason: Additional IVPB Infusion Ondansetron HCl (Ondansetron 4 Mg/2 Ml Vial) 4 mg IV Q8H PRN PRN PRN Reason: NAUSEA/VOMITING Sodium Chloride (0.9% Saline Lock 10 Ml Syringe) 10 - 40 ml IV UD PRN PRN Reason: SALINE FLUSH Last Admin: 06/07/20 09:11 Dose: 10 ml Documented by: Medical Necessity - Tobacco Use Smoking Status: Former smoker Tobacco Use: Non-smoker Assessment/Plan All Active Problems (Last Updated 06/06/20 @ 00:[address] Ben Ortez MD) SARS (severe acute respiratory syndrome) (Acute) COVID-19 (Acute) RECOMMENDATIONS: 1. Wean supplemental oxygen to maintain saturations at or above 90%. 2. Continue Decadron 6 mg daily x10 days. 3. Continue DVT prophylaxis dosing Lovenox. 4. Continue empiric antimicrobials pending culture data. Likely okay to discontinue if blood cultures negative at 48 hours 5. Encourage incentive spirometer use and mobilize patient as tolerated. IMPRESSIONS: 1. Acute hypoxemic respiratory insufficiency secondary to COVID-19 pneumonia The patient with a relatively protracted course. Patient appears to be responding well to therapy. Will defer to infectious disease, but likely does not require remdesivir or convalescent serum. High clinical suspicion that supplemental oxygen will be necessary at discharge. Patient does have a brief smoking history and may benefit from outpatient pulmonary function testing, but this can be addressed in a different date. Encourage incentive spirometer. If patient continues to do well, possibly discharge in the next 48 to 72 hours. Empiric antibiotics can likely be discontinued if cultures negative at 48 hours. Patient does have an increase in leukocytosis, but this is likely secondary to steroid therapy. No fevers been noted overnight. Less concerned that the patient will require intubation or noninvasive therapy for his respiratory failure. Inpatient E&M: [id number] [facility] L3
--- NOTE | 2020-06-07 16:37 | PCM.HP.ID ---
Problem List (1) COVID-19 Status: Acute Reason for Consult: covid Consulted by: Dr. Mantilla History of Present Illness: The patient is a 59 year old M who presented with 2 weeks cough, SOB, headache, mild congestion, one day of mild aches and yellow sputum. Came to ED, sat was 84%, admitted on dex, azithro/ceftriaxone. On 4L, feeling ok, no fever, no sputum, sx improving. CT showed no PE. Full ROS performed and neg except as noted above. - Medical History Surgical History: reviewed Allergies/Adverse Reactions: Allergies No Known Allergies Allergy (Verified 06/05/20 20:22) Home Medications: Ambulatory Orders Medication Instructions Recorded NK 06/05/20 - Social History SMOKING STATUS:: Former smoker Vital Signs Temp Pulse Resp BP Pulse Ox 97.8 F 71 18 129/72 H 96 06/07/20 08:45 06/07/20 08:45 06/07/20 08:45 06/07/20 08:45 06/07/20 09:00 Oxygen Flow Rate (L/min) 4 Oxygen Delivery Method Nasal Cannula Weight: 87.3 kg Body Mass Index (BMI) 26.8 Microbiology Past 72 Hours 06/06/20 01:30 Gram Stain - Final Sputum, Expectorated/Coughed Respiratory Culture - Preliminary Appears to be normal respiratory janice. Further studies to follow. 06/06/20 01:30 Legionella Antigen - Final Urine, Random 06/06/20 01:30 Streptococcus pneumoniae Antigen (M - Final Urine, Random Laboratory Tests Past 24 Hrs 06/07/20 06/07/20 05:10 05:10 WBC 18.3 H RBC 3.41 L Hgb 10.1 L Hct 31.7 L MCV 93.0 MCH 29.6 MCHC 31.9 L RDW Std Deviation 46.2 H RDW Coeff of Freddy 13.5 Plt Count 359 MPV 10.1 Immature Gran % (Auto) 0.700 Neut % (Auto) 84.9 H Lymph % (Auto) 8.3 L [place] % (Auto) 5.9 Eos % (Auto) 0.0 Baso % (Auto) 0.2 Absolute Neuts (auto) 15.5 H Absolute Lymphs (auto) 1.52 Nucleated RBC % 0 Sodium 136 Potassium 4.2 Chloride 105 Carbon Dioxide 23.0 Anion Gap 8 BUN 15 Creatinine 0.67 L Estim Creat Clear Calc 129.56 Est GFR (MDRD) Af Amer 157 Est GFR (MDRD) Non-Af 129 BUN/Creatinine Ratio 22.4 H Glucose 111 H Calcium 9.1 - Other Studies Radiology: [] reviewed Other Studies: [] Route of nutrition/ use of supplements: [] Nutritional Intake: [] IV Site: [] Ram Catheter: [] - Physical Exam General: Alert, Oriented x3, Cooperative HEENT: Atraumatic, PERRLA, EOMI Neck: Supple, No Nodes Lungs: Diminished Cardiovascular: Regular rate, Regular Rhythm Abdomen: Soft, Non Tender, Non-Distended Extremities: No edema Skin: No rashes IV Site: Peripheral, without redness Musculoskeletal: No Tenderness to Palpation of Joints or Extremities - Assessment/Plan Antibiotics: [] Assessment/Plan: [] Active and Suspected Problems (Last Updated 06/06/20 @ 00:[address] Ben Ortez MD) SARS (severe acute respiratory syndrome) (Acute) COVID-19 (Acute) On 4L, feeling better on dex. Will stop azithro/ceftriaxone with neg cxs, normal PCT. Will change dex to po. Will follow, thank you
[2020-06-08 05:25] VITALS: BP 120/72; PULSE 74; RESP 18; TEMP 36.2; O2SAT 92
[2020-06-08 05:29] VITALS: RESP 18; O2SAT 92
[2020-06-08] MEDS: 0.9% Saline Lock 10 ML Syringe IV (05:30)
[2020-06-08 06:47] LABS: D-Dimer Quantitative (DVT/PE) 0.72 FEU/ug/m (0.27-0.49)
[2020-06-08 07:47] VITALS: O2SAT 94
--- NOTE | 2020-06-08 09:43 | CPS ---
started by nursing
--- NOTE | 2020-06-08 09:45 | CPS ---
teaching done by nursing
[2020-06-08 09:47] LABS: Procalcitonin 0.08 ng/mL (0.00-0.09)
[2020-06-08 09:50] LABS: Ferritin 427 ng/mL (26-388)
[2020-06-08 10:38] VITALS: BP 120/69; PULSE 82; RESP 16; TEMP 36.6; O2SAT 96
[2020-06-08] MEDS: Enoxaparin 30 MG/0.3 ML Syringe SC (10:41)
[2020-06-08] MEDS: guaiFENesin 1,200 MG Tablet 1200 MG PO (10:42)
[2020-06-08] MEDS: dexAMETHasone 4 MG Tablet 6 MG PO (10:42)
[2020-06-08 10:47] VITALS: O2SAT 90; O2SAT 93
--- NOTE | 2020-06-08 12:29 | PCM.PN.PUL ---
Patient Problems: Active and Suspected Problems (Last Updated 06/06/20 @ 00:[address] Ben Ortez MD) SARS (severe acute respiratory syndrome) (Acute) COVID-19 (Acute) Subjective: Patient did well overnight. No acute issues were reported. Patient reports he feels subjectively improved compared to previous. Patient was able to be on room air. Patient does have a sporadic dry cough. Patient is asking to go home. - Physical Exam Vitals/I&O's: Vital Signs Temp Pulse Resp BP Pulse Ox 36.6 C 82 16 120/69 93 06/08/20 10:38 06/08/20 10:38 06/08/20 10:38 06/08/20 10:38 06/08/20 10:47 Oxygen Flow Rate (L/min) 2 Oxygen Delivery Method Room Air Weight: 87.3 kg Body Mass Index (BMI) 26.8 Intake and Output for Last 24 Hours 06/06/20 06/07/20 06/08/20 23:59 23:59 23:59 Intake Total 1890 / 1890 850 / 1650 1800 / 1800 Output Total 1850 / 1850 1974 / 1974 800 / 800 Balance 40 / 40 -1125 / -325 1000 / 1000 General: Alert, Oriented x3, Cooperative, No apparent distress, Well developed, Well nourished, - - No conversational dyspnea. Speaking in full sentences. HEENT: Atraumatic, PERRLA, EOMI, Normocephalic, - - No scleral icterus or injection noted Oral: Moist Mucosa, No Gingival or Mucosal Lesions/ Ulcerations Neck: Supple, No JVD, No Nodes, Trachea Midline Lungs: No rhonchi, No wheeze, No rales, Diminished, - - Symmetric expansion. No dullness to percussion. Cardiovascular: Regular rate, Regular Rhythm, Normal S1, Normal S2, No murmurs, No rub noted, No Gallop Abdomen: Bowel Sounds Present, Soft, Non Tender, Non-Distended Extremities: No clubbing, No cyanosis, No edema Skin: No rashes, No breakdown Musculoskeletal: No Tenderness to Palpation of Joints or Extremities Lymphatic: No Cervical, Supraclavicular, or Inguinal Adenopathy Neurological: Cranial nerves II-XII grossly intact, Neuro grossly intact, Motor Exam 5/5 strength throughout Psych/Mental Status: Alert and oriented to time, place, person, mood and affect Microbiology Past 72 Hours 06/05/20 20:25 Blood Culture (Wb) - Anticubital Right Blood Culture - Preliminary No growth in 48 hours. 06/05/20 20:35 Blood Culture (Wb) - Anticubital Left Blood Culture - Preliminary No growth in 48 hours. 06/06/20 01:30 Sputum, Expectorated/Coughed Gram Stain - Final 06/06/20 01:30 Sputum, Expectorated/Coughed Respiratory Culture - Final 06/06/20 01:30 Urine, Random Legionella Antigen - Final 06/06/20 01:30 Urine, Random Streptococcus pneumoniae Antigen (M - Final Laboratory Results 06/08/20 05:52: D-Dimer Quant (PE/DVT) 0.72 H* 06/08/20 05:52: Ferritin 427 H, C-React Prot Ext Range 47.10 H 06/08/20 05:52: Procalcitonin 0.08 Current Medications Acetaminophen (Acetaminophen 325 Mg Tablet) 650 mg PO Q6H PRN PRN PRN Reason: Pain Score 1-10/Temp > 100.7 F Dexamethasone (Dexamethasone 4 Mg Tablet) 6 mg PO DAILY@0800 [facility] Stop: 06/16/20 08:01 Last Admin: 06/08/20 10:42 Dose: 6 mg Documented by: Enoxaparin Sodium (Enoxaparin 30 Mg/0.3 Ml Syringe) 30 mg SC BID [facility] Last Admin: 06/08/20 10:41 Dose: 30 mg Documented by: Guaifenesin (Guaifenesin 1,200 Mg Tablet) 1,200 mg PO BID [facility] Last Admin: 06/08/20 10:42 Dose: 1,200 mg Documented by: Sodium Chloride () 250 mls @ 15 mls/hr IV .[id number] PRN PRN Reason: Saline Flush Sodium Chloride () 250 mls @ 15 mls/hr IV .[id number] PRN PRN Reason: Additional IVPB Infusion Ondansetron HCl (Ondansetron 4 Mg/2 Ml Vial) 4 mg IV Q8H PRN PRN PRN Reason: NAUSEA/VOMITING Sodium Chloride (0.9% Saline Lock 10 Ml Syringe) 10 - 40 ml IV UD PRN PRN Reason: SALINE FLUSH Last Admin: 06/08/20 05:30 Dose: 10 ml Documented by: Medical Necessity - Tobacco Use Smoking Status: Former smoker Tobacco Use: Non-smoker Assessment/Plan All Active Problems (Last Updated 06/06/20 @ 00:[address] Ben Ortez MD) SARS (severe acute respiratory syndrome) (Acute) COVID-19 (Acute) RECOMMENDATIONS: 1. Okay to discharge off supplemental oxygen 2. Complete Decadron 6 mg daily x10 days. 3. No antibiotics required at discharge from my perspective 4. Okay to discharge from a pulmonary perspective 5. No need for routine follow-up with pulmonary on discharge. Patient can call if he continues to have shortness of breath. Card should be given. IMPRESSIONS: 1. Acute hypoxemic respiratory insufficiency secondary to COVID-19 pneumonia The patient with a relatively protracted course. Patient appears to be responding well to therapy. Will defer to infectious disease, but likely does not require remdesivir or convalescent serum. Patient does not qualify for supplemental oxygen at this time. Did stress to the patient that he could take an additional week or 2 to recover from symptomatology. Given the patient is not requiring supplemental oxygen and will have transportation issues, it is reasonable to discharge without pulmonary follow-up. Patient be should be given information to call if he starts to develop worsening shortness of breath as pulmonary function test can be obtained as an outpatient. Patient was also advised that he should be checking his oxygen saturations routinely and call if his saturations fall below 90%. Patient does not have previous lung pathology, so may do well without pulmonary follow-up. Patient is agreeable with this plan. Inpatient E&M: 16810 Subs Hosp L2
[2020-06-08 12:56] VITALS: BP 128/74; PULSE 78; RESP 16; TEMP 36.8; O2SAT 96
--- NOTE | 2020-06-08 14:14 | PCM.DC ---
- Discharge Diagnoses Current Active Problems: Current Active and Chronic Problems (Last Updated 06/06/20 @ 00:[address] Ben Ortez MD) SARS (severe acute respiratory syndrome) (Acute) COVID-19 (Acute) Reason(s) for Visit for Discharge Instructions: Shortness of breath, Acute COVID-19 infection You will use the following diet at home:: Regular Your food should be the consistency of: Regular Your liquids should be the consistency of: Regular/Thin Discharge Activity: Return to Normal Activity Allergies/Adverse Reactions: Allergies No Known Allergies Allergy (Verified 06/05/20 20:22) Medications to take at Discharge Dexamethasone [Decadron] 6 mg PO DAILY@0800 6 Days #6 tab 06/08/20 Guaifenesin [Mucinex] 1,200 mg PO BID 10 Days #20 tab 06/08/20 The following prescriptions were given: Dexamethasone [Decadron] 6 mg PO DAILY@0800 6 Days #6 tab Transmission Status: Pending to [facility] Guaifenesin [Mucinex] 1,200 mg PO BID 10 Days #20 tab Transmission Status: Pending to [facility] Primary Care Physician: Ananda Olvera DO [Primary Care Provider] - Please follow up with your Primary Care Physician in: in 2 weeks Test Results: Test results from this visit will be discussed in further detail at your follow-up appointment, if applicable. Please Follow Up With: Follow-up with the pulmonology clinic, Call [phone] if needed Proposed Discharge Date: 06/08/20
--- NOTE | 2020-06-08 14:17 | DS.PCM_ITS ---
Discharge Date and Diagnosis - Problem List Patient Problems: Active and Suspected Problems (Last Updated 06/06/20 @ 00:[address] Ben Ortez MD) SARS (severe acute respiratory syndrome) (Acute) COVID-19 (Acute) Date of Admission: 06/04/20 Date of Discharge: 06/08/20 - Primary Discharge Diagnosis Acute Problems: Active Problems (Last Updated 06/06/20 @ 00:[address] Ben Ortez MD) Acute COVID-19 pneumonia Acute hypoxic respiratory insufficiency Lactic acidosis Hospital Course and Treatment Imaging Results: Clinical Impression(s) from Imaging Studies Chest X-Ray 06/05/20 20:45 IMPRESSION: Bilateral pulmonary infiltrates consistent with a pneumonic process of viral, atypical or typical nature. Electronically Signed: Martina Solares MD at 21:10 EDT , Service support , Chest CTA 06/06/20 04:51 IMPRESSION: Normal CTA chest examination, without a demonstrated pulmonary embolism, aortic aneurysm, or aortic dissection. Commonly reported imaging features of (COVID-19) pneumonia are present. Other processes such as influenza pneumonia and organizing pneumonia (as can be seen with drug toxicity and connective tissue disease), can cause a similar imaging pattern. Mild atherosclerosis. Mild mediastinal lymphadenopathy. Electronically Signed: Ryan Horn MD at 7:10 EDT , Service support , Pulmonary ID Operations: None Procedures: None Summary of Care Provided: The patient is a 59 year old M with no significant past medical history who was admitted with shortness of breath and found to be COVID-19 positive. Patient had associated loss of smell and taste. Started 11 days prior to admission. Associated with fever also. He was saturating 84% at home. In the ED he needed 4 to 5 L of oxygen. He was admitted to the Covid floor, started on IV dexamethasone. His admitting chest x-ray showed bilateral pulmonary infiltrates. CT of the chest was negative for PE and showed ground-glass o pacities in the periphery of the mid and upper lung gant as well as denser infiltrates in the lower lung gant. He continued to improve and was off oxygen at time of discharge. He was evaluated for home oxygen and found not to require oxygen. Patient was discharged on oral dexamethasone to complete 10 days course. Follow-up with his primary care doctor in 2 weeks. He was advised to continue to use his incentive spirometer. Patient Problems: Active and Suspected Problems (Last Updated 06/06/20 @ 00:[address] Ben Ortez MD) SARS (severe acute respiratory syndrome) (Acute) COVID-19 (Acute) Subjective: On the day of discharge, patient was seen and examined. Denied any new complaints. He denied any fever or chills or worsening shortness of breath. Objective: Physical exam: General: Alert, Oriented x3, Cooperative, No apparent distress, off oxygen HEENT: Atraumatic, PERRLA, EOMI, Normocephalic Oral: Dry Mucosa Neck: Supple, No JVD, Negative Carotid Bruits Lungs: - -Diminished breath sounds Cardiovascular: Regular rate, Regular Rhythm, Normal S1, Normal S2, No murmurs Abdomen: Bowel Sounds Present, Soft, Non Tender Extremities: No clubbing, No cyanosis, No edema, Capillary Refill Less than 3 Seconds Skin: No rashes, No breakdown Musculoskeletal: No Tenderness to Palpation of Joints or Extremities Lymphatic: No Cervical, Supraclavicular, or Inguinal Adenopathy Neurological: Cranial nerves II-XII grossly intact, Neuro grossly intact, Motor Exam 5/5 strength throughout Psych/Mental Status: Normal Affect, Appropriate, Alert and oriented to time, place, person, mood and affect - Physical Exam Vitals/I&O's: Vital Signs Temp Pulse Resp BP Pulse Ox 97.8 F 82 16 120/69 93 06/08/20 10:38 06/08/20 10:38 06/08/20 10:38 06/08/20 10:38 06/08/20 10:47 Oxygen Flow Rate (L/min) 2 Oxygen Delivery Method Room Air Weight: 87.3 kg Body Mass Index (BMI) 26.8 Intake and Output for Last 24 Hours 06/06/20 06/07/20 06/08/20 23:59 23:59 23:59 Intake Total 1890 / 1890 850 / 1650 1800 / 1800 Output Total 1850 / 1850 1974 / 1974 800 / 800 Balance 40 / 40 -1125 / -325 1000 / 1000 Microbiology Past 72 Hours 06/05/20 20:25 Blood Culture (Wb) - Anticubital Right Blood Culture - Preliminary No growth in 48 hours. 06/05/20 20:35 Blood Culture (Wb) - Anticubital Left Blood Culture - Preliminary No growth in 48 hours. 06/06/20 01:30 Sputum, Expectorated/Coughed Gram Stain - Final 06/06/20 01:30 Sputum, Expectorated/Coughed Respiratory Culture - Final 06/06/20 01:30 Urine, Random Legionella Antigen - Final 06/06/20 01:30 Urine, Random Streptococcus pneumoniae Antigen (M - Final Laboratory Results 06/08/20 05:52: D-Dimer Quant (PE/DVT) 0.72 H* 06/08/20 05:52: Ferritin 427 H, C-React Prot Ext Range 47.10 H 06/08/20 05:52: Procalcitonin 0.08 Current Medications Acetaminophen (Acetaminophen 325 Mg Tablet) 650 mg PO Q6H PRN PRN PRN Reason: Pain Score 1-10/Temp > 100.7 F Dexamethasone (Dexamethasone 4 Mg Tablet) 6 mg PO DAILY@0800 [facility] Stop: 06/16/20 08:01 Last Admin: 06/08/20 10:42 Dose: 6 mg Documented by: Enoxaparin Sodium (Enoxaparin 30 Mg/0.3 Ml Syringe) 30 mg SC BID [facility] Last Admin: 06/08/20 10:41 Dose: 30 mg Documented by: Guaifenesin (Guaifenesin 1,200 Mg Tablet) 1,200 mg PO BID [facility] Last Admin: 06/08/20 10:42 Dose: 1,200 mg Documented by: Sodium Chloride () 250 mls @ 15 mls/hr IV .[id number] PRN PRN Reason: Saline Flush Sodium Chloride () 250 mls @ 15 mls/hr IV .[id number] PRN PRN Reason: Additional IVPB Infusion Ondansetron HCl (Ondansetron 4 Mg/2 Ml Vial) 4 mg IV Q8H PRN PRN PRN Reason: NAUSEA/VOMITING Sodium Chloride (0.9% Saline Lock 10 Ml Syringe) 10 - 40 ml IV UD PRN PRN Reason: SALINE FLUSH Last Admin: 06/08/20 05:30 Dose: 10 ml Documented by: Discharge Diet: No Restrictions Discharge Activity: Return to Normal Activity Home Medications: Medications to take at Discharge Dexamethasone [Decadron] 6 mg PO DAILY@0800 6 Days #6 tab 06/08/20 Guaifenesin [Mucinex] 1,200 mg PO BID 10 Days #20 tab 06/08/20 Following Prescriptions Were Given to Patient: Dexamethasone [Decadron] 6 mg PO DAILY@0800 6 Days #6 tab Transmission Status: Received by [facility] Guaifenesin [Mucinex] 1,200 mg PO BID 10 Days #20 tab Transmission Status: Received by [facility] Primary Care Physician: Ananda Olvera DO [Primary Care Provider] - Please follow up with your Primary Care Physician in: in 2 weeks Please Follow Up With: Follow-up with the pulmonology clinic, Call [phone] if needed Disposition: Home Minutes spent on discharge:: 45 Patient Condition:: Stable Medical Necessity - Tobacco Use Smoking Status: Former smoker Tobacco Use: Non-smoker Meaningful Use Info Meaningful Use Diagnoses (Choose all that apply): None applicable Inpatient E&M: 93525 Disch Hosp
--- NOTE | 2020-06-08 15:38 | PCM.PN.ID ---
Patient Problems: Active and Suspected Problems (Last Updated 06/06/20 @ 00:[address] Ben Ortez MD) SARS (severe acute respiratory syndrome) (Acute) COVID-19 (Acute) Subjective: Feeling better, less SOB, no fever - Physical Exam Vitals/I&O's: Vital Signs Temp Pulse Resp BP Pulse Ox 97.8 F 82 16 120/69 93 06/08/20 10:38 06/08/20 10:38 06/08/20 10:38 06/08/20 10:38 06/08/20 10:47 Oxygen Flow Rate (L/min) 2 Oxygen Delivery Method Room Air Weight: 87.3 kg Body Mass Index (BMI) 26.8 Intake and Output for Last 24 Hours 06/06/20 06/07/20 06/08/20 23:59 23:59 23:59 Intake Total 1890 / 1890 850 / 1650 1800 / 1800 Output Total 1850 / 1850 1974 / 1974 800 / 800 Balance 40 / 40 -1125 / -325 1000 / 1000 General: Alert, Cooperative, No apparent distress Lungs: Clear to auscultation, Diminished Cardiovascular: Regular rate, Regular Rhythm Abdomen: Soft, Non Tender, Non-Distended Skin: No rashes Microbiology Past 72 Hours 06/05/20 20:25 Blood Culture (Wb) - Anticubital Right Blood Culture - Preliminary No growth in 48 hours. 06/05/20 20:35 Blood Culture (Wb) - Anticubital Left Blood Culture - Preliminary No growth in 48 hours. 06/06/20 01:30 Sputum, Expectorated/Coughed Gram Stain - Final 06/06/20 01:30 Sputum, Expectorated/Coughed Respiratory Culture - Final 06/06/20 01:30 Urine, Random Legionella Antigen - Final 06/06/20 01:30 Urine, Random Streptococcus pneumoniae Antigen (M - Final Laboratory Results 06/08/20 05:52: D-Dimer Quant (PE/DVT) 0.72 H* 06/08/20 05:52: Ferritin 427 H, C-React Prot Ext Range 47.10 H 06/08/20 05:52: Procalcitonin 0.08 Current Medications Acetaminophen (Acetaminophen 325 Mg Tablet) 650 mg PO Q6H PRN PRN PRN Reason: Pain Score 1-10/Temp > 100.7 F Dexamethasone (Dexamethasone 4 Mg Tablet) 6 mg PO DAILY@0800 [facility] Stop: 06/16/20 08:01 Last Admin: 06/08/20 10:42 Dose: 6 mg Documented by: Enoxaparin Sodium (Enoxaparin 30 Mg/0.3 Ml Syringe) 30 mg SC BID [facility] Last Admin: 06/08/20 10:41 Dose: 30 mg Documented by: Guaifenesin (Guaifenesin 1,200 Mg Tablet) 1,200 mg PO BID [facility] Last Admin: 06/08/20 10:42 Dose: 1,200 mg Documented by: Sodium Chloride () 250 mls @ 15 mls/hr IV .[id number] PRN PRN Reason: Saline Flush Sodium Chloride () 250 mls @ 15 mls/hr IV .[id number] PRN PRN Reason: Additional IVPB Infusion Ondansetron HCl (Ondansetron 4 Mg/2 Ml Vial) 4 mg IV Q8H PRN PRN PRN Reason: NAUSEA/VOMITING Sodium Chloride (0.9% Saline Lock 10 Ml Syringe) 10 - 40 ml IV UD PRN PRN Reason: SALINE FLUSH Last Admin: 06/08/20 05:30 Dose: 10 ml Documented by: Medical Necessity - Tobacco Use Smoking Status: Former smoker Tobacco Use: Non-smoker Route of nutrition/ use of supplements: [] Nutritional Intake: [] IV Site: [] Ram Catheter: [] - Assessment/Plan Antibiotics: [] Assessment/Plan: [] Active and Suspected Problems (Last Updated 06/06/20 @ 00:[address] Ben Ortez MD) SARS (severe acute respiratory syndrome) (Acute) COVID-19 (Acute) On 4L, feeling better on dex. Ok for d/c home to complete course of dex. Will follow as needed
--- NOTE | 2020-06-09 14:15 | CASEMGMT ---
KARIS CERVANTES COVID Discharge F/U Phone Call Discharge date: 06/08/2020 Call date: 06/09/2020 Call time: 1415 Attempted to reach pt without success at this time, this RN HELEN unable to leave message at this time as it was a business name on the message. SStaten RN CM Admission dx: SARS COVID 19
--- NOTE | 2020-06-10 13:50 | CASEMGMT ---
RN CM Note: attempted call again. No answer, and messaging did not have patient's name identifier (was business name). Adelina GO RN ACM
== END 2020-06-08 16:10 | disposition home or self-care (01) | DRG 177 ==
LOC: ED 21:35 → MS2 23:31
PROVIDERS: Student in an Organized Health Care Education/Training Program; Admitting Provider Hospitalist; Emergency Provider Emergency Medicine; PCP Family Medicine; Visit Provider Internal Medicine
DX: U07.1 COVID-19 (principal); J12.89 Other viral pneumonia; E87.2 Acidosis; E87.6 Hypokalemia; R06.89 Other abnormalities of breathing; R09.02 Hypoxemia; Z87.891 Personal history of nicotine dependence; Z23 Encounter for immunization
CPT/HCPCS: 36415; 71045; 71275; 80048; 82728; 83605; 84145; 84484; 85025; 85379; 85384; 86140; 87040; 87070; 87205; 87449; 87635; 93005; 99251; 99285; Q9967; 90686; A4216; G0463; U0002

== ENCOUNTER → 2023-09-13 | Outpatient (CLI) | payer SELFPAY, OTHER ==
--- NOTE | 2023-09-13 15:38 | VDLE_ITS ---
Reason For Study: LLE Swelling RIGHT LEFT FV is compressible, spontaneous, phasic, GSV is normal. competent and demonstrates normal CFV is compressible, spontaneous, phasic, augmentation. competent, and demonstrates normal Procedure augmentation. This is a venous duplex using B-mode, color FV is compressible, spontaneous, phasic, flow and spectral Doppler. competent and demonstrates normal Exam performed in department. augmentation. The exam was diagnostic. POP V is compressible, spontaneous, phasic, A preliminary report was called and/or faxed competent and demonstrates normal to [facility] / Dr. Olvera. augmentation. T/P Trunk is compressible. PTV is compressible. LT PerV is compressible. VL/Venous Duplex US, Unilateral Interpretation Summary Deep veins of the left lower extremity are patent and compressible segmentally. There is no evidence of left lower extremity deep vein thrombosis. The left great saphenous vein dagmar ears patent and compressible segmentally. Ordering Physician: Ananda Olvera Referring Physician: Ananda Olvera Performed By: Mj German, RVAlexander
--- OUTSIDE RECORDS SUMMARY | 2023-09-13 19:29 | XMS RPT_ITS | CCD ---
Author Name Unknown Address [address] [place] [address] Organization [facility] Care Team Providers Care Treasury Representative Name Role Phone Ramy Velasco Admitting Provider Ramy Velasco Attending Provider HOSPITALIST PROGRAM, [facility] Emergency Provider Unav ailable Medications Completed/Discontinued Medications Medication Drug Class(es) Dates Sig (Normalized) Sig (Original) acetaminophen 325 mg / HYDROcodone bitartrate 5 mg oral tablet (2 sources) Opioid Agonist Start: 03-07-2022 take 1 tablet by mouth every four to six hours as needed for pain Hydrocodone/Apap 5mg/325mg [Hydrocodone/Apa p 5 Mg/325 Mg] 1 - 2 TAB PO EVERY 4 TO 6 HOURS NEEDED PRN For pain 40 7 March 07, 2022 Active aspirin 81 mg delayed release oral tablet (6 sources) Platelet Aggregation Inhibitor, Nonsteroidal Anti-inflammatory Drug Start: 03-08-2022 take 325 mg by mouth twice daily Aspirin [Aspirin 81] 81 MG PO DAILY 0 March 08, 2022 Active Do not take while on Aspirin 325mg twice a day, resume when done Results Test Name Value Interpretation Reference Range Facil ity Vital Signs Date Time Vital Sign Value Performing Clinician Faci lity 03-08-2022 15:46-0400 SaO2% (BldA) [Mass fraction] 96 % Ramy Arriaga [facility] 03-08-2022 13:06-0400 Body temperature 98.2 [degF] Ramy Arriaga [facility] 03-08-2022 13:06-0400 Diastolic blood pressure 62 mm[Hg] Ramy Arriaga [facility] 03-08-2022 13:06-0400 Heart rate 78 /min Ramy Wraygo V. [facility] 03-08-2022 13:06-0400 Respiratory rate 16 /min Ramy Wraygo V. [facility] 03-08-2022 13:06-0400 Systolic blood pressure 112 mm[Hg] Ramy Wraygo V. [facility] 03-07-2022 09:10-0400 Body height 175.26 cm Ramy Wraygo V. [facility] 03-07-2022 09:10-0400 Body weight 95.8 kg Ramy Wraygo V[facility] Encounters Encounter Date Encounter Type Care Provider Facility Start: 03-07-2022 End: 03-08-2022 Evaluation and management of inpatient Ramy Wraygo V. [facility] Procedures Date Procedure Procedure Detail Performing Clinician Start: 03-07-2022 Simple O2 Mask Marley David Start: 03-07-2022 Thermometer PACU Melinda Alejo Start: 03-07-2022 Vital Signs PACU Melinda Alejo Start: 03-07-2022 X-ray of left knee Anand d Mungo V. Start: 03-07-2022 X-ray of right knee Damian id Mungo V. Start: 03-07-2022 MD Ramy youngo V. Start: 03-07-2022 Carbon dioxide avinash nt measurement Kellen Chukenan Start: 03-07-2022 Epidural anesthesia Kady i Adrianko Start: 03-07-2022 Oxygen SDS Kellen Chunk o Start: 03-07-2022 Sonosite Kellen Chunk o Start: 03-07-2022 Clipper Blade SDS Sonia Mcpherson Start: 03-07-2022 Preparation for procedure Fransisca Mcpherson Start: 03-07-2022 Thermometer SDS Fransisca Mcpherson Start: 03-07-2022 Vital Signs SDS Fransisca Mcpherson Plan of Treatment Date Care Activity Detail Author Start: 03-07-2022 US GUIDANCE (SHAFFER) US GUIDANCE (BR IGGS) [facility] Patient Education DI for Knee Replacement [facility] Social History Date Type Detail Facility Unknown if ever smoked [facility] Discharge instructions Note Date & Type Note Facility Additional Discharge Instructions See Dr Elizabeth's Knee Form. Weight Bearing as Tolerated Instruction/Education Provided DI for Kn ee Replacement [facility] Advance Directives No Advanced Directives Records Found Advance Directive Response Recorded Date/ Time Advance Directives No March 07, 2022 7:10am Durable Power Of Medical Office Professional Instructor No February [id number] 7:10am Living Will Yes March 07, 2022 7: 10am Chief Complaint and Reason for Visit Encounter Admit Date Chief Complaint Reason for V isit Discharged Inpatient March 07, 2022 5:02am OSTEOARTHRITIS OF KNEE BILATERAL Summary Purpose Family History No Family History Records Found Additional Source Comments (unrecognized sect ion and content) No Status Records Found INFORMATION SOURCE (unrecogn ized section and content) FOR RECORDS PERTAINING TO PATIENTS WHO ARE OR HAVE BEEN ENROLLED IN A CHEMICAL DEPENDENCY/SUBSTANCEABUSE PROGRAM, SOME INFORMATION MAY BE OMITTED. This clinical summary was aggregated from multiple sources. Caution should be exercised in using it in the provision of clinical care. This summary normalizes information from multiple sources, and as a consequence, information in this document may materially change the coding, format and clinical context of patient data. In addition, data may be omitted in some cases. CLINICAL DECISIONS SHOULD BE BASED ON THE PRIMARY CLINICAL RECORDS. [facility] [employer] [facility]. provides no warranty or guarantee of the accuracy or completeness of information in this document.
== END | disposition home or self-care (01) ==
PROVIDERS: PCP Family Medicine; Referring Provider Family Medicine; Visit Provider Family Medicine
DX: M79.605 Pain in left leg (principal); M79.89 Other specified soft tissue disorders
CPT/HCPCS: 93971